=== PATIENT | male | born 2000 | race Caucasian/White ===

== ENCOUNTER 2021-05-15 14:06 | Inpatient (IN) | payer BC ==
[~2021-05-15] VITALS: Ht 170.2 cm; Wt 53.8 kg
[2021-05-15] MEDS ORDERED: NS 500 ML IV ONE (14:35)
[2021-05-15 15:10] LABS: BASO # 0.1 10^3/uL (0.0-0.2); BASO % 0.7 % (0.0-1.0); EOS % 0.1 % (0.0-3.0); HEMATOCRIT 45.4 % (42.0-52.0); HEMOGLOBIN 14.6 g/dl (13.5-17.5); LYMPH # 2.3 10^3/uL (1.5-5.0); LYMPH % 25.8 % (24.0-44.0); MEAN CORPUSCULAR HEMOGLOBIN 25.4 pg (27.0-33.0); MEAN CORPUSCULAR HGB CONC 32.2 g/dl (32.0-36.5); MONO # 1.1 10^3/uL (0.0-0.8); MONO % 12.6 % (2.0-8.0); NEUTROPHILS # 5.5 10^3/uL (1.5-8.5); NEUTROPHILS % 60.6 % (36.0-66.0); PLATELET COUNT, AUTOMATED 341 10^3/uL (150-450); RED BLOOD COUNT 5.75 10^6/uL (4.30-6.10)
[2021-05-15 15:44] LABS: ACETAMINOPHEN LEVEL < 2.0 UG/ML (10.0-30.0); ALBUMIN 4.3 GM/DL (3.2-5.2); ALT/SGPT 17 U/L (12-78); BILIRUBIN,DIRECT 0.2 MG/DL (0.0-0.2); BILIRUBIN,TOTAL 0.6 MG/DL (0.2-1.0); BLOOD UREA NITROGEN 5 MG/DL (7-18); CARBON DIOXIDE LEVEL 29 MEQ/L (21-32); CHLORIDE LEVEL 101 MEQ/L (98-107); CREATININE FOR GFR 0.93 MG/DL (0.70-1.30); ETHYL ALCOHOL (ETHANOL) < 0.003 % (0.000-0.010); GLUCOSE, FASTING 109 MG/DL (70-100); LIPASE 63 U/L (73-393); POTASSIUM SERUM 3.7 MEQ/L (3.5-5.1); SALICYLATE LEVEL < 1.7 MG/DL (5.0-30.0); SODIUM LEVEL 137 MEQ/L (136-145); TOTAL PROTEIN 9.1 GM/DL (6.4-8.2)
[2021-05-15] MEDS ORDERED: ISOVUE-370 76% 100ML VIAL As Ordered ONE (15:49)
[2021-05-15] MEDS ORDERED: NS 1,000 ML IV ONE (16:45)
[2021-05-15] MEDS ORDERED: SIMETHICONE 80MG CHEW TAB PO ONE (19:15)
[2021-05-15] MEDS ORDERED: HOME MED LIST COMPLETE! XX SCH (19:35)
[2021-05-15 20:42] LABS: AMPHETAMINES LEVEL URINE NEGATIVE (NEGATIVE); BARBITURATES URINE NEGATIVE (NEGATIVE); BENZODIAZEPINES URINE NEGATIVE (NEGATIVE); CANNABINOIDS URINE NEGATIVE (NEGATIVE); COCAINE METABOLITE URINE NEGATIVE (NEGATIVE); METHADONE URINE NEGATIVE (NEGATIVE); OPIATES URINE NEGATIVE (NEGATIVE); PHENCYCLIDINE URINE NEGATIVE (NEGATIVE)
[2021-05-15] MEDS ORDERED: traZODone 50 MG TAB PO PRN (21:40)
[2021-05-15] MEDS ORDERED: MOM 30ML SUSPENSION UDC PO PRN (21:40)
[2021-05-15] MEDS ORDERED: ACETAMINOPHEN TAB 650MG DOSE (2X325MG) PO PRN (21:40)
[2021-05-15] MEDS ORDERED: LORazepam 1 MG TAB PO PRN (21:40)
[2021-05-15 22:50] VITALS: BP 138/85
[2021-05-16] MEDS: MAALOX 30 ML SUSP *UDC PO PRN ×2 (01:03→16:50)
[2021-05-16 06:36] VITALS: BP 135/90
[2021-05-16] MEDS ORDERED: SERTRALINE HCL 25 MG TABLET PO SCH (09:00)
[2021-05-16 18:18] VITALS: BP 131/81
[2021-05-17 06:55] VITALS: BP 106/64
== END 2021-05-17 11:00 | disposition home or self-care (01) | DRG 756 ==
LOC: M ED 14:06 → M ED INP 21:38 → M PSY 23:03
PROVIDERS: ADMIT Psychiatry & Neurology Psychiatry; ATTEND Psychiatry & Neurology Psychiatry
DX: F41.9 Anxiety disorder, unspecified (principal); R45.851 Suicidal ideations

== ENCOUNTER 2021-08-24 16:38 | Emergency (ER) | payer BC ==
[~2021-08-24] VITALS: Ht 172.7 cm; Wt 57.4 kg
[2021-08-24 18:56] LABS: BASO % 0.4 % (0.0-1.0); HEMATOCRIT 41.9 % (42.0-52.0); HEMOGLOBIN 13.8 g/dl (13.5-17.5); LYMPH # 1.5 10^3/uL (1.5-5.0); LYMPH % 16.3 % (24.0-44.0); MEAN CORPUSCULAR HEMOGLOBIN 26.3 pg (27.0-33.0); MEAN CORPUSCULAR HGB CONC 32.9 g/dl (32.0-36.5); MEAN CORPUSCULAR VOLUME 79.8 fl (80.0-96.0); MONO # 0.6 10^3/uL (0.0-0.8); MONO % 6.3 % (2.0-8.0); NEUTROPHILS % 76.8 % (36.0-66.0); PLATELET COUNT, AUTOMATED 326 10^3/uL (150-450); RED BLOOD COUNT 5.25 10^6/uL (4.30-6.10); WHITE BLOOD COUNT 9.1 10^3/uL (4.0-10.0)
[2021-08-24 19:23] LABS: ALBUMIN 4.3 GM/DL (3.2-5.2); ALT/SGPT 24 U/L (12-78); BILIRUBIN,DIRECT 0.2 MG/DL (0.0-0.2); BILIRUBIN,TOTAL 0.8 MG/DL (0.2-1.0); BLOOD UREA NITROGEN 13 MG/DL (7-18); CALCIUM LEVEL 9.9 MG/DL (8.5-10.1); CARBON DIOXIDE LEVEL 25 MEQ/L (21-32); CHLORIDE LEVEL 103 MEQ/L (98-107); CREATININE FOR GFR 0.81 MG/DL (0.70-1.30); GLUCOSE, FASTING 85 MG/DL (70-100); LIPASE 83 U/L (73-393); SODIUM LEVEL 136 MEQ/L (136-145); TOTAL PROTEIN 8.7 GM/DL (6.4-8.2)
[2021-08-24] MEDS ORDERED: ONDA4TAB6 PO (20:30)
[2021-08-24] MEDS ORDERED: PROT1TAB2 PO (20:30)
[2021-08-24] MEDS ORDERED: GI COCKTAIL 50ML BTL(HYOSCYAMINE/MAALOX/LIDOCAINE VISCOUS)(1:3:1) PO ONE (21:25)
[2021-08-24] MEDS ORDERED: ONDANSETRON 4MG ORAL DISINTEGRATING TAB PO ONE (21:25)
[2021-08-24 21:56] VITALS: BP 119/87
== END 2021-08-24 21:58 | disposition home or self-care (01) ==
LOC: M ED 16:38
DX: R10.11 Right upper quadrant pain (principal); R11.0 Nausea; K59.00 Constipation, unspecified; Z88.8 Allergy status to other drugs, medicaments and biological substances; Z79.899 Other long term (current) drug therapy

== ENCOUNTER 2022-03-02 01:00 | Inpatient (IN) | payer BC ==
[~2022-03-02] VITALS: Ht 170.2 cm; Wt 61.1 kg
[~2022-03-02 01:00] MED LIST: ONDA4TAB6 PO; PROT1TAB2 PO
[2022-03-02 02:35] LABS: MEAN CORPUSCULAR HGB CONC 34.1 g/dl (32.0-36.5); MEAN CORPUSCULAR VOLUME 84.9 fl (80.0-96.0); PLATELET COUNT, AUTOMATED 376 10^3/uL (150-450); RED BLOOD COUNT 5.18 10^6/uL (4.30-6.10); WHITE BLOOD COUNT 15.2 10^3/uL (4.0-10.0)
[2022-03-02 03:11] LABS: ACETAMINOPHEN LEVEL < 2.0 UG/ML (10.0-20.0); ALBUMIN 4.8 G/DL (3.2-5.2); ALKALINE PHOSPHATASE 49 U/L (46-116); ALT/SGPT 17 U/L (7.0-40); AST/SGOT 35 U/L (<34); BILIRUBIN,DIRECT 0.2 MG/DL (<0.4); BILIRUBIN,TOTAL 0.8 MG/DL (0.3-1.2); BLOOD UREA NITROGEN 14 MG/DL (9-23); CALCIUM LEVEL 10.1 MG/DL (8.5-10.1); CARBON DIOXIDE LEVEL 20 MMOL/L (20-31); CHLORIDE LEVEL 102 MMOL/L (98-107); CREATININE FOR GFR 0.65 MG/DL (0.70-1.30); ETHYL ALCOHOL (ETHANOL) 0.003 % (0.000-0.010); GLUCOSE, FASTING 123 MG/DL (60-100); POTASSIUM SERUM 4.9 MMOL/L (3.5-5.1); SODIUM LEVEL 135 MMOL/L (136-145); THYROID STIMULATING HORMONE 2.117 uIU/ML (0.48-4.17); TOTAL PROTEIN 8.9 G/DL (5.7-8.2)
[2022-03-02 03:14] LABS: SALICYLATE LEVEL < 3.0 MG/DL (<30)
[2022-03-02 03:20] LABS: RSV AMPLIFICATION NEGATIVE (NEGATIVE)
[2022-03-02] MEDS ORDERED: FLUV25TA13 PO ×2 (04:00→06:36)
[2022-03-02] MEDS ORDERED: BUPR-70 PO (04:00)
[2022-03-02] MEDS ORDERED: SPIR100T3 PO (04:00)
[2022-03-02] MEDS ORDERED: ESTR1TAB PO ×2 (04:00→06:36)
[2022-03-02 05:40] LABS: AMPHETAMINES LEVEL URINE NEGATIVE (NEGATIVE); BARBITURATES URINE NEGATIVE (NEGATIVE); BENZODIAZEPINES URINE NEGATIVE (NEGATIVE); CANNABINOIDS URINE NEGATIVE (NEGATIVE); COCAINE METABOLITE URINE NEGATIVE (NEGATIVE); METHADONE URINE NEGATIVE (NEGATIVE); OPIATES URINE NEGATIVE (NEGATIVE); PHENCYCLIDINE URINE NEGATIVE (NEGATIVE)
[2022-03-02] MEDS ORDERED: BUPR1TAB52 PO (06:36)
[2022-03-02] MEDS ORDERED: MULTCHW12 PO (06:36)
[2022-03-02] MEDS ORDERED: HOME MED LIST COMPLETE! XX SCH (06:40)
[2022-03-02] MEDS ORDERED: NICOTINE 21MG/24HR 1 EA TRANSDERMAL TD SCH (09:00)
[2022-03-02] MEDS ORDERED: MAALOX 30 ML SUSP *UDC PO PRN (10:55)
[2022-03-02] MEDS ORDERED: ACETAMINOPHEN TAB 650MG DOSE (2X325MG) PO PRN (10:55)
[2022-03-02] MEDS ORDERED: MOM 30ML SUSPENSION UDC PO PRN (10:55)
[2022-03-02 14:59] VITALS: BP 130/90
[2022-03-02] MEDS: ONDANSETRON 4MG ORAL DISINTEGRATING TAB PO PRN (15:54)
[2022-03-02] MEDS: SPIRONOLACTONE 50 MG TAB PO SCH ×2 (15:55→20:11)
[2022-03-02] MEDS: estradioL 1 MG TAB PO SCH ×2 (15:55→20:13)
[2022-03-02] MEDS: buPROPion (WELLBUTRIN SR) 100 MG SR TAB PO SCH (15:55)
[2022-03-02] MEDS: fluvoxaMINE MALEATE 50 MG TAB PO SCH (20:11)
[2022-03-02] MEDS: traZODone 50 MG TAB PO PRN (20:11)
[2022-03-03 06:50] VITALS: BP_SYST 119; BP_SYST 130; BP_DIAS 60; BP_DIAS 73
[2022-03-03] MEDS: buPROPion (WELLBUTRIN SR) 100 MG SR TAB PO SCH (09:03)
[2022-03-03] MEDS: SPIRONOLACTONE 50 MG TAB PO SCH ×2 (09:03→19:58)
[2022-03-03] MEDS: MULTIVITAMINS/MINERALS THERAP 1 TAB PO SCH (09:04)
[2022-03-03] MEDS: ONDANSETRON 4MG ORAL DISINTEGRATING TAB PO PRN (09:04)
[2022-03-03] MEDS: estradioL 1 MG TAB PO SCH ×2 (09:04→19:58)
[2022-03-03] MEDS ORDERED: GI COCKTAIL 50ML BTL(HYOSCYAMINE/MAALOX/LIDOCAINE VISCOUS)(1:3:1) PO ONE (14:00)
[2022-03-03 18:19] VITALS: BP 122/78
[2022-03-03] MEDS: traZODone 50 MG TAB PO PRN (19:58)
[2022-03-03] MEDS: fluvoxaMINE MALEATE 50 MG TAB PO SCH (19:59)
[2022-03-04 06:37] VITALS: BP 107/57
[2022-03-04] MEDS: buPROPion (WELLBUTRIN SR) 100 MG SR TAB PO SCH (08:29)
[2022-03-04] MEDS: MULTIVITAMINS/MINERALS THERAP 1 TAB PO SCH (08:29)
[2022-03-04] MEDS: SPIRONOLACTONE 50 MG TAB PO SCH ×2 (08:29→21:55)
[2022-03-04] MEDS: estradioL 1 MG TAB PO SCH ×2 (08:29→21:55)
[2022-03-04 16:27] VITALS: BP 119/60
[2022-03-04] MEDS: traZODone 50 MG TAB PO PRN (21:54)
[2022-03-04] MEDS: fluvoxaMINE MALEATE 50 MG TAB PO SCH (21:55)
[2022-03-05 06:36] VITALS: BP 132/85
[2022-03-05] MEDS: SPIRONOLACTONE 50 MG TAB PO SCH ×2 (09:03→20:11)
[2022-03-05] MEDS: MULTIVITAMINS/MINERALS THERAP 1 TAB PO SCH (09:03)
[2022-03-05] MEDS: estradioL 1 MG TAB PO SCH ×2 (09:03→20:11)
[2022-03-05] MEDS: buPROPion (WELLBUTRIN SR) 100 MG SR TAB PO SCH (09:04)
[2022-03-05 16:54] VITALS: BP 116/59
[2022-03-05] MEDS: traZODone 50 MG TAB PO PRN (20:11)
[2022-03-05] MEDS: fluvoxaMINE MALEATE 50 MG TAB PO SCH (20:11)
[2022-03-06 06:52] VITALS: BP 113/61
[2022-03-06] MEDS: SPIRONOLACTONE 50 MG TAB PO SCH ×2 (08:24→20:34)
[2022-03-06] MEDS: buPROPion (WELLBUTRIN SR) 100 MG SR TAB PO SCH (08:25)
[2022-03-06] MEDS: MULTIVITAMINS/MINERALS THERAP 1 TAB PO SCH (08:25)
[2022-03-06] MEDS: estradioL 1 MG TAB PO SCH ×2 (08:25→20:34)
[2022-03-06 18:12] VITALS: BP 101/59
[2022-03-06] MEDS: fluvoxaMINE MALEATE 50 MG TAB PO SCH (20:34)
[2022-03-06] MEDS: traZODone 50 MG TAB PO PRN (20:34)
[2022-03-06] MEDS: PILL CUTTER 1 EACH XX PRN (20:34)
[2022-03-06] MEDS: ONDANSETRON 4MG ORAL DISINTEGRATING TAB PO PRN (20:37)
[2022-03-07] MEDS: MULTIVITAMINS/MINERALS THERAP 1 TAB PO SCH (08:35)
[2022-03-07] MEDS: SPIRONOLACTONE 50 MG TAB PO SCH ×2 (08:36→20:55)
[2022-03-07] MEDS: estradioL 1 MG TAB PO SCH ×2 (08:36→20:55)
[2022-03-07] MEDS: buPROPion (WELLBUTRIN SR) 100 MG SR TAB PO SCH (08:36)
[2022-03-07] MEDS: ONDANSETRON 4MG ORAL DISINTEGRATING TAB PO PRN (10:41)
[2022-03-07] MEDS: fluvoxaMINE MALEATE 50 MG TAB PO SCH (20:55)
[2022-03-07] MEDS: PILL CUTTER 1 EACH XX PRN (20:55)
[2022-03-07] MEDS: traZODone 50 MG TAB PO PRN (20:55)
[2022-03-08] MEDS ORDERED: BUPR1TAB52 PO (09:12)
[2022-03-08] MEDS ORDERED: SPIR100T3 PO (09:12)
[2022-03-08] MEDS ORDERED: ESTR1TAB PO (09:12)
[2022-03-08] MEDS ORDERED: FLUV25TA13 PO (09:13)
[2022-03-08] MEDS ORDERED: MULTCHW12 PO (09:13)
[2022-03-08] MEDS ORDERED: ONDA4TAB6 PO (09:13)
[2022-03-08] MEDS: buPROPion (WELLBUTRIN SR) 100 MG SR TAB PO SCH (09:20)
[2022-03-08] MEDS: SPIRONOLACTONE 50 MG TAB PO SCH (09:20)
[2022-03-08] MEDS: MULTIVITAMINS/MINERALS THERAP 1 TAB PO SCH (09:20)
[2022-03-08] MEDS: estradioL 1 MG TAB PO SCH (09:21)
== END 2022-03-08 15:00 | disposition home or self-care (01) | DRG 753 ==
LOC: M ED 01:00 → M ED INP 10:53 → M PSY 13:56
PROVIDERS: ADMIT Student in an Organized Health Care Education/Training Program; ATTEND Psychiatry & Neurology Psychiatry
DX: F39 Unspecified mood [affective] disorder (principal); R45.851 Suicidal ideations; F50.9 Eating disorder, unspecified; D72.829 Elevated white blood cell count, unspecified; Q85.00 Neurofibromatosis, unspecified; F41.9 Anxiety disorder, unspecified; F42.9 Obsessive-compulsive disorder, unspecified; F64.8 Other gender identity disorders; Z88.8 Allergy status to other drugs, medicaments and biological substances; Z79.899 Other long term (current) drug therapy

== ENCOUNTER → 2023-06-27 | Outpatient (REF) | payer BC ==
[~2023-06-27] MED LIST changes: +BUPR-70 PO; +BUPR1TAB52 PO; +ESTR1TAB PO; +FLUV25TA13 PO; +MULTCHW12 PO; +SPIR100T3 PO
[2023-06-27 13:42] LABS: ALBUMIN 4.2 G/DL (3.2-5.2); ALKALINE PHOSPHATASE 59 U/L (46-116); ALT/SGPT 24 U/L (7.0-40); AST/SGOT 18 U/L (<34); BILIRUBIN,DIRECT 0.2 MG/DL (<0.4); BILIRUBIN,TOTAL 0.5 MG/DL (0.3-1.2); BLOOD UREA NITROGEN 16 MG/DL (9-23); CALCIUM LEVEL 9.8 MG/DL (8.5-10.1); CARBON DIOXIDE LEVEL 29 MMOL/L (20-31); CHLORIDE LEVEL 103 MMOL/L (98-107); CREATININE FOR GFR 0.83 MG/DL (0.70-1.30); GLOMERULAR FILTRATION RATE > 60.0 (>60); GLUCOSE, FASTING 92 MG/DL (60-100); IRON (FE) 105 UG/DL (65-175); PERCENT SATURATION 31.1 % (19.7-50.0); POTASSIUM SERUM 4.4 MMOL/L (3.5-5.1); SODIUM LEVEL 135 MMOL/L (136-145); TOTAL IRON BINDING CAPACITY 338 UG/DL (250-425); TOTAL PROTEIN 7.8 G/DL (5.7-8.2)
[2023-06-27 13:43] LABS: FERRITIN 63.9 NG/ML (10.5-307.3)
[2023-06-27 14:05] LABS: HIV 1&2 SCREEN NEGATIVE (NEGATIVE)
[2023-06-27 14:13] LABS: HEPATITIS C VIRUS ABY INDEX 0.27 INDEX (<0.8)
== END ==
LOC: M LAB REF 12:29
PROVIDERS: ATTEND Nurse Practitioner Family
DX: K76.0 Fatty (change of) liver, not elsewhere classified (principal); E83.51 Hypocalcemia; R55 Syncope and collapse

== ENCOUNTER → 2023-09-07 | Outpatient (CLI) | payer BC ==
[~2023-09-07] MED LIST changes: +ONDA-282 PO; -ONDA4TAB6 PO
[2023-09-07 14:41] LABS: ALBUMIN 4.3 G/DL (3.2-5.2); ALKALINE PHOSPHATASE 57 U/L (46-116); ALT/SGPT 15 U/L (7.0-40); AST/SGOT 17 U/L (<34); BILIRUBIN,DIRECT 0.3 MG/DL (<0.4); BILIRUBIN,TOTAL 0.9 MG/DL (0.3-1.2); BLOOD UREA NITROGEN 10 MG/DL (9-23); CARBON DIOXIDE LEVEL 29 MMOL/L (20-31); CHLORIDE LEVEL 102 MMOL/L (98-107); CHOLESTEROL LEVEL 144 MG/DL (<200); CHOLESTEROL RISK RATIO 3.24 (<5); CREATININE FOR GFR 0.79 MG/DL (0.70-1.30); GLOMERULAR FILTRATION RATE > 60.0 (>60); GLUCOSE, FASTING 92 MG/DL (60-100); HDL CHOLESTEROL 44.4 MG/DL (>40); LDL CHOLESTEROL 84.8 MG/DL (<100); NON-HDL-C 99.6 MG/DL; POTASSIUM SERUM 4.3 MMOL/L (3.5-5.1); SODIUM LEVEL 137 MMOL/L (136-145); TOTAL PROTEIN 7.9 G/DL (5.7-8.2); TRIGLYCERIDES LEVEL 74 MG/DL (<150)
[2023-09-07 14:42] LABS: TESTOSTERONE 498 NG/DL (241-827)
== END ==
LOC: M LAB 13:27 → EDSEX 13:27
PROVIDERS: ATTEND Physician Assistant
DX: F64.9 Gender identity disorder, unspecified (principal)

== ENCOUNTER → 2023-10-29 | Outpatient (REF) | payer BC | LOC: M LAB REF 12:28 | PROVIDERS: ATTEND Nurse Practitioner Family | DX: R30.0 Dysuria (principal) ==

== ENCOUNTER → 2024-01-02 | Outpatient (CLI) | payer BC ==
[2024-01-02 18:23] LABS: BLOOD UREA NITROGEN 9 MG/DL (9-23); CALCIUM LEVEL 10.2 MG/DL (8.5-10.1); CARBON DIOXIDE LEVEL 27 MMOL/L (20-31); CHLORIDE LEVEL 105 MMOL/L (98-107); CREATININE FOR GFR 0.81 MG/DL (0.55-1.30); GLOMERULAR FILTRATION RATE > 60.0 (>60); GLUCOSE, FASTING 106 MG/DL (60-100); SODIUM LEVEL 137 MMOL/L (136-145)
[2024-01-02 18:25] LABS: ESTRADIOL 62.4 PG/ML; TESTOSTERONE 11 NG/DL (14-76)
== END ==
LOC: M LAB 16:39
PROVIDERS: ATTEND Physician Assistant Medical
DX: F64.1 Dual role transvestism (principal)

== ENCOUNTER → 2024-01-15 | Outpatient (CLI) | payer BC ==
[2024-01-15 16:39] LABS: ALBUMIN 4.2 G/DL (3.2-5.2); ALKALINE PHOSPHATASE 49 U/L (46-116); ALT/SGPT 15 U/L (7.0-40); AST/SGOT 13 U/L (<34); BILIRUBIN,DIRECT 0.1 MG/DL (<0.4); BILIRUBIN,TOTAL 0.4 MG/DL (0.3-1.2); BLOOD UREA NITROGEN 9 MG/DL (9-23); CARBON DIOXIDE LEVEL 28 MMOL/L (20-31); CHLORIDE LEVEL 105 MMOL/L (98-107); GLOMERULAR FILTRATION RATE > 60.0 (>60); GLUCOSE, FASTING 136 MG/DL (60-100); POTASSIUM SERUM 3.8 MMOL/L (3.5-5.1); SODIUM LEVEL 139 MMOL/L (136-145); TOTAL PROTEIN 8.1 G/DL (5.7-8.2)
== END ==
LOC: M LAB 15:43
PROVIDERS: ATTEND Physician Assistant Medical
DX: F64.9 Gender identity disorder, unspecified (principal)

== ENCOUNTER → 2024-04-18 | Outpatient (CLI) | payer OTHER ==
[2024-04-18 18:47] LABS: BLOOD UREA NITROGEN 10 MG/DL (9-23); CALCIUM LEVEL 10.5 MG/DL (8.5-10.1); CARBON DIOXIDE LEVEL 28 MMOL/L (20-31); CHLORIDE LEVEL 101 MMOL/L (98-107); CREATININE FOR GFR 0.67 MG/DL (0.55-1.30); GLOMERULAR FILTRATION RATE > 60.0 (>60); GLUCOSE, FASTING 91 MG/DL (60-100); SODIUM LEVEL 137 MMOL/L (136-145)
== END ==
LOC: M LAB 16:48
PROVIDERS: ATTEND Physician Assistant Medical
DX: F64.0 Transsexualism (principal)

== ENCOUNTER → 2024-05-02 | Outpatient (CLI) | payer OTHER ==
[2024-05-02 17:34] LABS: ALBUMIN 4.1 G/DL (3.2-5.2); ALKALINE PHOSPHATASE 38 U/L (35-104); ALT/SGPT 15 U/L (7.0-40); AST/SGOT 21 U/L (<34); BILIRUBIN,DIRECT 0.2 MG/DL (<0.4); BILIRUBIN,TOTAL 0.6 MG/DL (0.3-1.2); BLOOD UREA NITROGEN 8 MG/DL (9-23); CALCIUM LEVEL 9.6 MG/DL (8.5-10.1); CARBON DIOXIDE LEVEL 29 MMOL/L (20-31); CHLORIDE LEVEL 101 MMOL/L (98-107); CREATININE FOR GFR 0.69 MG/DL (0.55-1.30); GLOMERULAR FILTRATION RATE > 60.0 (>60); GLUCOSE, FASTING 88 MG/DL (60-100); SODIUM LEVEL 139 MMOL/L (136-145); TOTAL PROTEIN 8.2 G/DL (5.7-8.2)
== END ==
LOC: M LAB 16:31
PROVIDERS: ATTEND Physician Assistant Medical
DX: R79.9 Abnormal finding of blood chemistry, unspecified (principal)

== ENCOUNTER 2024-06-06 18:58 | Emergency (ER) | payer OTHER ==
[~2024-06-06] VITALS: Ht 172.7 cm; Wt 65.7 kg
[2024-06-07] MEDS: ONDANSETRON 4MG 2ML VIAL IV ONE (07:25)
[2024-06-07] MEDS: PANTOPRAZOLE 40MG VIAL IV ONE (07:25)
[2024-06-07 07:29] LABS: BASO # 0.1 10^3/uL (0.0-0.2); BASO % 0.5 % (0.0-1.0); EOS % 0.3 % (0.0-3.0); HEMATOCRIT 39.6 % (36.0-47.0); HEMOGLOBIN 13.7 g/dl (12.0-15.5); LYMPH # 3.5 10^3/uL (1.5-5.0); LYMPH % 26.9 % (24.0-44.0); MEAN CORPUSCULAR HEMOGLOBIN 28.9 pg (27.0-33.0); MEAN CORPUSCULAR HGB CONC 34.6 g/dl (32.0-36.5); MEAN CORPUSCULAR VOLUME 83.5 fl (80.0-96.0); MONO # 1.5 10^3/uL (0.0-0.8); MONO % 11.5 % (2.0-8.0); NEUTROPHILS # 7.9 10^3/uL (1.5-8.5); NEUTROPHILS % 60.6 % (36.0-66.0); PLATELET COUNT, AUTOMATED 372 10^3/uL (150-450); RED BLOOD COUNT 4.74 10^6/uL (4.00-5.40)
[2024-06-07 07:53] LABS: LIPASE 31 U/L (12-53)
[2024-06-07 07:55] LABS: ALBUMIN 4.7 G/DL (3.2-5.2); ALKALINE PHOSPHATASE 41 U/L (35-104); ALT/SGPT 22 U/L (7.0-40); AST/SGOT 22 U/L (<34); BILIRUBIN,DIRECT 0.3 MG/DL (<0.4); BILIRUBIN,TOTAL 0.9 MG/DL (0.3-1.2); BLOOD UREA NITROGEN 9 MG/DL (9-23); CALCIUM LEVEL 9.7 MG/DL (8.5-10.1); CARBON DIOXIDE LEVEL 23 MMOL/L (20-31); CHLORIDE LEVEL 98 MMOL/L (98-107); CREATININE FOR GFR 0.64 MG/DL (0.55-1.30); GLOMERULAR FILTRATION RATE > 60.0 (>60); GLUCOSE, FASTING 80 MG/DL (60-100); SODIUM LEVEL 134 MMOL/L (136-145); TOTAL PROTEIN 8.9 G/DL (5.7-8.2)
[2024-06-07] MEDS ORDERED: PROT1TAB2 PO (08:24)
[2024-06-07] MEDS ORDERED: ONDA-282 PO (08:26)
[2024-06-07 09:37] LABS: APPEARANCE, URINE HAZY (CLEAR); BACTERIA, URINE AUTO NEGATIVE (NEGATIVE); BILIRUBIN, URINE AUTO NEGATIVE (NEGATIVE); BLOOD, URINE BLOOD NEGATIVE (NEGATIVE); COLOR, URINE YELLOW (YELLOW); GLUCOSE, URINE (UA) AUTO NEGATIVE (NEGATIVE); KETONE, URINE AUTO 2+ mg/dL (NEGATIVE); LEUKOCYTE ESTERASE, URINE AUTO TRACE (NEGATIVE); MUCUS, URINE SMALL (NEGATIVE); NITRITE, URINE AUTO NEGATIVE (NEGATIVE); PROTEIN, URINE AUTO 1+ mg/dL (NEGATIVE); RBC, URINE AUTO 1 /HPF (0-3); SPECIFIC GRAVITY URINE AUTO 1.018 (1.002-1.035); SQUAMOUS EPITHELIAL CELL UR AU 3 /HPF (0-6); UROBILINOGEN, URINE AUTO 0.2 mg/dL (0.0-2.0); WBC, URINE AUTO 12 /HPF (0-3)
[2024-06-07 10:18] VITALS: BP 126/83; TEMP 97.7; O2SAT 94
== END 2024-06-07 10:21 | disposition home or self-care (01) ==
LOC: M ED 18:58
DX: K29.70 Gastritis, unspecified, without bleeding (principal); K76.0 Fatty (change of) liver, not elsewhere classified; Z79.899 Other long term (current) drug therapy; Z88.8 Allergy status to other drugs, medicaments and biological substances
CPT/HCPCS: 80048; 80076; 81001; 83690; 85025; 96374; 96375; 99284; J2405; J2470